=== PATIENT | male | born 1980 | race Caucasian/White ===

== ENCOUNTER 2023-12-23 10:44 | Emergency (ER) | payer SELFPAY ==
[~2023-12-23] VITALS: Ht 167.6 cm; Wt 68.0 kg
[2023-12-23 10:46] VITALS: O2SAT 99
[2023-12-23] MEDS ORDERED: LIDOCAINE HCL/EPINEPHRINE 1%-EPI 1:100,000 50 ML VIAL INFIL ONE (11:15)
[2023-12-23] MEDS: LIDOCAINE HCL/EPINEPHRINE 1%-EPI 1:100,000 20 ML VIAL INFIL NR (11:30)
[2023-12-23] MEDS: TETANUS, DIPHTHERIA, PERTUSSIS VAC/PF 0.5ML (>10YR OLD) IM ONE (12:00)
[2023-12-23] MEDS ORDERED: IBUP-2028 MT (13:06)
[2023-12-23] MEDS ORDERED: BO1 TP (13:06)
[2023-12-23 13:52] VITALS: BP 136/81; PULSE 68; RESP 18; TEMP 98.5
== END 2023-12-23 14:05 | disposition home or self-care (01) ==
LOC: ER 10:44
DX: S81.011A Laceration without foreign body, right knee, initial encounter (principal); W19.XXXA Unspecified fall, initial encounter; Y93.89 Activity, other specified; Y92.89 Other specified places as the place of occurrence of the external cause; Y99.8 Other external cause status
CPT/HCPCS: 73562; 90715; 12004; 90471; 99283; J3490; Z7610